=== PATIENT | male | born 1980 | race Two or more races ===

== ENCOUNTER 2023-05-31 08:12 | Emergency (ER) | payer MEDICAID ==
[~2023-05-31] VITALS: Ht 170.2 cm; Wt 104.5 kg
[2023-05-31] MEDS ORDERED: MECLIZINE HCL 25 MG TAB PO ONE (08:45)
[2023-05-31] MEDS ORDERED: ONDANSETRON ODT 4 MG TAB PO ONE (08:45)
[2023-05-31 09:00] VITALS: PULSE 74; RESP 12; TEMP 97.7; O2SAT 98
[2023-05-31 09:23] LABS: Basophils # (auto) 0 10 ^3/uL (0-0.2); Basophils % (auto) 0.2 % (0.0-2.0); Eosinophils # (auto) 0.1 10 ^3/uL (0-0.8); Eosinophils % (auto) 1.5 % (0.0-7.0); Hematocrit 43.9 % (41.0-53.0); Hemoglobin 14.4 g/dL (13.5-17.5); Lymphocytes # (auto) 1.5 10 ^3/uL (0.4-5.4); Lymphocytes % (auto) 21.9 % (10.0-50.0); Mean Corpuscular Hemoglobin 30.1 pg (28.0-32.0); Mean Corpuscular Hgb Conc. 32.8 g/dL (32.0-36.0); Mean Corpuscular Volume 91.7 fL (80.0-100.0); Monocytes # (auto) 0.4 10 ^3/uL (0-1.3); Monocytes % (auto) 5.6 % (0.0-12.0); Neutrophils # (auto) 4.9 10 ^3/uL (1.6-8.6); Neutrophils % (auto) 70.8 % (37.0-80.0); Red Blood Cells 4.79 10^6/uL (4.5-5.90); Red Cell Distribution Width 14.1 % (11.8-14.3); White Blood Cell 6.9 10^3/uL (4.4-10.8)
[2023-05-31 09:48] LABS: Alanine Aminotransferase 37 U/L (7-40); Albumin 4.4 g/dL (3.2-4.8); Alkaline Phosphatase 86 U/L (46-116); Anion Gap 7 (5-15); Aspartate Aminotransferase 32 U/L (13-40); Blood Urea Nitrogen 17 mg/dL (9-23); Calcium 9.6 mg/dL (8.5-10.1); Carbon Dioxide 25 mmol/L (20-30); Chloride 108 mmol/L (98-107); Glucose 114 mg/dL (74-106); Potassium 4.3 mmol/L (3.5-5.1); Sodium 140 mmol/L (136-145); Total Protein 6.9 g/dL (5.7-8.2)
[2023-05-31 10:10] LABS: Lipase 30 U/L (12-53); Magnesium 1.8 mg/dL (1.6-2.6)
[2023-05-31 10:40] LABS: Urine Bacteria FEW /hpf (None Seen); Urine Blood 1+ /uL (Negative); Urine Clarity Clear (Clear); Urine Color Yellow (Yellow); Urine Mucus FEW (None Seen); Urine Protein, UAD Negative (Negative); Urine Specific Gravity 1.026 (1.001-1.035); Urine Urobilinogen Normal (Negative); Urine WBC 4 /hpf (0 - 3)
[2023-05-31] MEDS ORDERED: ZOFR4T PO (12:51)
[2023-05-31] MEDS ORDERED: MECL25CH85 PO (12:51)
[2023-05-31 13:40] VITALS: BP 118/76; PULSE 79; RESP 14; O2SAT 98
== END 2023-05-31 13:45 | disposition home or self-care (01) ==
LOC: ER 08:12
DX: R42 Dizziness and giddiness (principal); E78.5 Hyperlipidemia, unspecified; R11.10 Vomiting, unspecified; Z79.899 Other long term (current) drug therapy
CPT/HCPCS: 36415; 70450; 80053; 81001; 83690; 83735; 84484; 85025; 93005; 99285; J8597; Q0162